=== PATIENT | female | born 1945 | race Caucasian/White ===

== ENCOUNTER 2018-04-23 06:44 | Emergency (ER) | payer MEDICARE ==
[~2018-04-23] VITALS: Ht 162.6 cm; Wt 44.5 kg
[2018-04-23] MEDS ORDERED: ASPIR 8181 MG PO (06:54)
[2018-04-23] MEDS ORDERED: SIMVASTATIN40 MG PO (06:54)
[2018-04-23] MEDS ORDERED: UNICOMPLEX M TA1 TA1 PO (06:54)
[2018-04-23] MEDS ORDERED: BACTRIM DS TAB1 EACH PO (07:28)
[2018-04-23] MEDS ORDERED: KEFLEX500 M1 PO (07:28)
[2018-04-23 07:37] VITALS: BP 116/62
== END 2018-04-23 07:37 | disposition home or self-care (01) ==
LOC: M.ERS 06:44
DX: L03.211 Cellulitis of face (principal)

== ENCOUNTER → 2018-09-04 | Outpatient (CLI) | payer MEDICARE ==
[~2018-09-04] MED LIST: ASPIR 8181 MG PO; BACTRIM DS TAB1 EACH PO; KEFLEX500 M1 PO; SIMVASTATIN40 MG PO; UNICOMPLEX M TA1 TA1 PO
== END ==
LOC: M.RAD 08:51
DX: Z12.31 Encounter for screening mammogram for malignant neoplasm of breast (principal)

== ENCOUNTER → 2019-02-05 | Outpatient (CLI) | payer MEDICARE | LOC: M.RAD 13:08 | DX: Z13.820 Encounter for screening for osteoporosis (principal); E28.39 Other primary ovarian failure; Z78.0 Asymptomatic menopausal state ==

== ENCOUNTER → 2019-09-06 | Outpatient (CLI) | payer MEDICARE | LOC: M.RAD 09:39 | DX: Z12.31 Encounter for screening mammogram for malignant neoplasm of breast (principal) ==

== ENCOUNTER → 2020-09-04 | Outpatient (CLI) | payer MEDICARE | LOC: M.RAD 07:47 | PROVIDERS: ATTEND Family Medicine | DX: Z12.31 Encounter for screening mammogram for malignant neoplasm of breast (principal) ==

== ENCOUNTER → 2021-09-04 | Outpatient (CLI) | payer MEDICARE | LOC: M.RAD 09:17 | PROVIDERS: ATTEND Family Medicine | DX: Z12.31 Encounter for screening mammogram for malignant neoplasm of breast (principal); N64.89 Other specified disorders of breast ==